=== PATIENT | female | born 1935 | race Caucasian/White ===

== ENCOUNTER 2018-02-01 11:39 | Outpatient (CLI) | payer MEDICARE, OTHER | END 2018-02-01 11:40 | disposition home or self-care (01) | LOC: BICMAMMO 11:39 | PROVIDERS: ATTEND Internal Medicine | DX: Z12.31 Encounter for screening mammogram for malignant neoplasm of breast (principal); N63.20 Unspecified lump in the left breast, unspecified quadrant; N63.10 Unspecified lump in the right breast, unspecified quadrant | CPT/HCPCS: 77063; 77067 ==

== ENCOUNTER 2018-06-02 08:52 | Outpatient (CLI) | payer MEDICARE, OTHER ==
[2018-06-02] MEDS ORDERED: Gadobenate Dimeglumine 529 MG/1 ML (20ML VIAL) ONE (10:38)
--- NOTE | 2018-06-02 11:03 | MRI ---
MRI BRAIN WITH AND WITHOUT CONTRAST: Date: 06/02/18 HISTORY: Dementia. COMPARISON: None. FINDINGS: No hemorrhage on the axial gradient echo sequence. No parenchymal mass, mass effect, or midline shift. Brain volume is age-appropriate. Cortical rashid-wh ite matter differentiation preserved. There is a focal area of malacic change with gliosis involving the right occipital lobe. Remainder of the cerebrum demonstrates preservation of cortical rashid-white matter differentiation. T2 and FLAIR white matter hyperintensities due to chronic small vessel ischemic changes. Central arterial flow-voids are maintained. Absent restricted diffusion. Adequate aeration of the sinuses and mastoid air cells. Minimal opacification of the right mastoid ai r cells is of doubtful significance. No pathologic enhancement of the brain parenchyma. IMPRESSION: Essentially unremarkable pre and postcontrast brain MRI. Brain volume is age-appropriate. POS: AMBROSIO
== END 2018-06-02 08:53 | disposition home or self-care (01) ==
LOC: BICMRI 08:52
PROVIDERS: ATTEND Internal Medicine
DX: F03.90 Unspecified dementia, unspecified severity, without behavioral disturbance, psychotic disturbance, mood disturbance, and anxiety (principal)
CPT/HCPCS: 70553; 82565; A9577

== ENCOUNTER 2022-07-09 10:56 | Inpatient (IN) | payer MEDICARE, OTHER ==
[2022-07-09 11:25] LABS: #Basophils 0.1 thou/uL (0.0-0.2); #Eosinphils 0.2 thou/uL (0.0-0.7); #Lymphocytes 2.3 thou/uL (1.20-3.40); #Neutrophils 10.9 thou/uL (1.40-6.50); %Basophils 0.5 % (0.0-1.0); %Eosinophils 1.5 % (0.0-10.0); %Lymphocytes 16.1 % (21.0-51.0); %Monocytes 6.7 % (0.0-10.0); %Neutrophils 75.2 % (42.0-75.0); Hemoglobin 13.9 g/dL (12.0-16.0); Mean Corpuscular HGB CONC 34.3 g/dL (32.0-36.0); Mean Corpuscular Hemoglobin 33.2 pg (27.0-31.0); Mean Corpuscular Volume 96.7 fl (78.0-98.0); Mean Platelet Volume 7.7 fL (7.4-10.4); Platelet Count 290 10x3/uL (130-400); RBC Distribution Width 12.1 % (11.5-14.5); White Blood Cell (WBC) Count 14.5 10x3/uL (4.8-10.8)
[2022-07-09 11:54] LABS: ALT (SGPT) 15 U/L (8-55); AST (SGOT) 17 U/L (5-34); Albumin 4.2 g/dL (3.4-4.8); Alkaline Phosphatase 130 U/L (40-110); Anion Gap 13 mmol/L (10-20); BUN (Urea Nitrogen) 18 mg/dL (9.8-20.1); Bilirubin, Total 0.7 mg/dL (0.2-1.2); Calc. Creatinine Clearance 0 mL/min (70-130); Carbon Dioxide 25 mmol/L (23-31); Chloride 105 mmol/L (98-107); Estimated GFR 70; Globulin 3.3 g/dL (2.4-3.5); Glucose 104 mg/dL (83-110); Potassium 3.7 mmol/L (3.5-5.1); Protein, Total 7.5 g/dL (5.8-8.1); Sodium 139 mmol/L (136-145)
[2022-07-09 12:15] LABS: PTT 33.7 sec (22.9-36.1); Prothrombin Time 13.9 sec (12.0-14.7)
[2022-07-09] MEDS ORDERED: Iopamidol-370 76% 500 ML MDV (1 ML CHARGE) ONE (13:01)
[2022-07-09] MEDS ORDERED: niCARdipine 25 MG/10 ML SDV ONE ×2 (13:20→13:38)
[2022-07-09] MEDS ORDERED: ADMIXTURE FEE IV SCH (13:30)
[2022-07-09] MEDS ORDERED: HUMAN PROTHROMBIN COMPLX IV SCH (13:30)
[2022-07-09] MEDS ORDERED: Human Prothrombin Complx(PCC) 1,500 UNIT in Admixture Fee 60 EACH IV SCH (13:30)
[2022-07-09 14:31] LABS: Bacteria/HPF 2+ HPF (None Seen); Bilirubin Negative (Negative); Blood, Urine Negative (Negative); Clarity Turbid (Clear); Glucose, Urine (Dipstick) Normal (Negative); Ketone, Urine Negative (Negative); Leukocyte 250 Leu/uL (Negative); Nitrite 2+ (Negative); Protein, Urine (Dipstick) 30 mg/dL (Neg-Trace); RBC/HPF 0-3 HPF (0-3); Squamous Epithelial 0-3 HPF (0-3); Urobilinogen Normal mg/dL (Less than 2); WBC/HPF 21-50 HPF (0-3); pH, Urine 6.5 (5.0-9.0)
[2022-07-09] MEDS ORDERED: cefTRIAXone (ROCEPHIN) 1 GM VIAL ONE (15:15)
[2022-07-09] MEDS ORDERED: Morphine 2 MG/ML VIAL SLOW IVP PRN (15:19)
[2022-07-09] MEDS ORDERED: Ipratropium/Albuterol 3 ML NEB NEB PRN (15:19)
[2022-07-09] MEDS ORDERED: Insulin Regular 300 UNITS/3 ML VIAL SC PRN (15:19)
[2022-07-09] MEDS ORDERED: TETANUS, DIPHTHERIA TOX,ADULT (TDVAX) 0.5 ML VIAL IM ONE (15:19)
[2022-07-09] MEDS ORDERED: Dextrose 50% Abboject 50 ML SYRINGE SLOW IVP PRN (15:19)
[2022-07-09] MEDS ORDERED: Ondansetron PF 4 MG/2 ML Vial IVP PRN (15:19)
[2022-07-09] MEDS ORDERED: Dextrose 5% in Water 1,000 ML IV PRN (15:19)
[2022-07-09] MEDS ORDERED: Acetaminophen 500 MG TAB PO PRN (15:23)
[2022-07-09] MEDS: Sodium Chloride 0.9% 1,000 ML IV SCH (18:21)
[2022-07-09] MEDS: Famotidine/PF 20 mg/2ml Vial SLOW IVP SCH (22:00)
[2022-07-09] MEDS: Senokot S 8.6-50 MG TAB PO SCH (22:00)
[2022-07-09] MEDS: hydrALAZINE 20 MG/ML VIAL SLOW IVP PRN ×2 (22:03→22:53)
[2022-07-09] MEDS: Nitrofurantoin Monohyd/M-Cryst 100 MG CAP PO SCH (23:32)
[2022-07-09] MEDS: Labetalol HCl 100 MG/20 ML VIAL SLOW IVP PRN (23:40)
[2022-07-10 03:50] LABS: #Basophils 0.1 thou/uL (0.0-0.2); #Eosinphils 0.1 thou/uL (0.0-0.7); #Lymphocytes 1.6 thou/uL (1.20-3.40); #Monocytes 1.1 thou/uL (0.11-0.59); #Neutrophils 10.4 thou/uL (1.40-6.50); %Basophils 0.4 % (0.0-1.0); %Eosinophils 1.1 % (0.0-10.0); %Lymphocytes 11.7 % (21.0-51.0); %Neutrophils 78.8 % (42.0-75.0); Hemoglobin 12.1 g/dL (12.0-16.0); Mean Corpuscular HGB CONC 32.7 g/dL (32.0-36.0); Mean Corpuscular Hemoglobin 31.4 pg (27.0-31.0); Mean Corpuscular Volume 95.9 fl (78.0-98.0); Mean Platelet Volume 7.6 fL (7.4-10.4); Platelet Count 290 10x3/uL (130-400); RBC Distribution Width 12.2 % (11.5-14.5); Red Blood Cell (RBC) Count 3.85 mill/uL (4.20-5.40); White Blood Cell (WBC) Count 13.2 10x3/uL (4.8-10.8)
[2022-07-10 04:05] LABS: Anion Gap 11 mmol/L (10-20); BUN (Urea Nitrogen) 14 mg/dL (9.8-20.1); Calc. Creatinine Clearance 56 mL/min (70-130); Calcium 9.3 mg/dL (7.8-10.44); Carbon Dioxide 22 mmol/L (23-31); Chloride 109 mmol/L (98-107); Estimated GFR 79; Glucose 111 mg/dL (83-110); Magnesium 1.5 mg/dL (1.6-2.6); Phosphorus 2.6 mg/dL (2.3-4.7); Potassium 3.1 mmol/L (3.5-5.1); Sodium 139 mmol/L (136-145)
[2022-07-10] MEDS: Labetalol HCl 100 MG/20 ML VIAL SLOW IVP PRN ×2 (04:25→22:40)
[2022-07-10] MEDS ORDERED: Magnesium Sulfate In Water 4 GM in Premix Bag 1 BAG IVPB SCH (05:00)
[2022-07-10] MEDS: Sodium Chloride 0.9% 1,000 ML IV SCH (05:15)
[2022-07-10] MEDS ORDERED: Potassium Phosphate 30 MMOL in Sodium Chloride 0.9% 250 ML 250 ML IVPB SCH (05:30)
[2022-07-10] MEDS: Senokot S 8.6-50 MG TAB PO SCH ×2 (10:16→20:54)
[2022-07-10] MEDS: Polyethylene Glycol 3350 17 GM Packet PO SCH (10:16)
[2022-07-10] MEDS: Famotidine/PF 20 mg/2ml Vial SLOW IVP SCH ×2 (10:16→20:54)
[2022-07-10] MEDS: Nitrofurantoin Monohyd/M-Cryst 100 MG CAP PO SCH ×2 (10:57→20:55)
[2022-07-10] MEDS: hydrALAZINE 20 MG/ML VIAL SLOW IVP PRN ×2 (15:07→20:47)
[2022-07-10] MEDS: Atorvastatin Calcium 20 MG TAB PO SCH (20:53)
[2022-07-10] MEDS ORDERED: Melatonin 3 MG TAB PO SCH (22:45)
[2022-07-11] MEDS: Labetalol HCl 100 MG/20 ML VIAL SLOW IVP PRN ×3 (03:47→15:52)
[2022-07-11 04:01] LABS: #Eosinphils 0.1 thou/uL (0.0-0.7); #Lymphocytes 1.4 thou/uL (1.20-3.40); #Monocytes 1.9 thou/uL (0.11-0.59); #Neutrophils 13.5 thou/uL (1.40-6.50); %Basophils 0.2 % (0.0-1.0); %Eosinophils 0.5 % (0.0-10.0); %Lymphocytes 8.4 % (21.0-51.0); %Monocytes 11.1 % (0.0-10.0); %Neutrophils 79.8 % (42.0-75.0); Mean Corpuscular HGB CONC 34.1 g/dL (32.0-36.0); Mean Corpuscular Hemoglobin 32.6 pg (27.0-31.0); Mean Corpuscular Volume 95.6 fl (78.0-98.0); Mean Platelet Volume 7.6 fL (7.4-10.4); Platelet Count 273 10x3/uL (130-400); RBC Distribution Width 12.4 % (11.5-14.5)
[2022-07-11 04:43] LABS: Anion Gap 12 mmol/L (10-20); BUN (Urea Nitrogen) 17 mg/dL (9.8-20.1); Calc. Creatinine Clearance 46 mL/min (70-130); Calcium 9.1 mg/dL (7.8-10.44); Carbon Dioxide 21 mmol/L (23-31); Chloride 107 mmol/L (98-107); Estimated GFR 67; Glucose 128 mg/dL (83-110); Magnesium 2.2 mg/dL (1.6-2.6); Phosphorus 3.2 mg/dL (2.3-4.7); Potassium 3.7 mmol/L (3.5-5.1); Sodium 136 mmol/L (136-145)
[2022-07-11] MEDS: Levothyroxine Sodium 88 MCG TAB PO SCH (05:53)
[2022-07-11] MEDS: hydrALAZINE 20 MG/ML VIAL SLOW IVP PRN (06:14)
[2022-07-11] MEDS ORDERED: Potassium Chloride 20 MEQ TAB PO SCH (07:45)
[2022-07-11] MEDS: Polyethylene Glycol 3350 17 GM Packet PO SCH (09:59)
[2022-07-11] MEDS: Senokot S 8.6-50 MG TAB PO SCH ×2 (10:01→20:43)
[2022-07-11] MEDS: Montelukast Sodium 10 mg Tablet PO SCH (10:02)
[2022-07-11] MEDS: Nitrofurantoin Monohyd/M-Cryst 100 MG CAP PO SCH ×2 (10:13→20:43)
[2022-07-11] MEDS: Famotidine 20 MG TAB PO SCH ×2 (10:13→20:44)
[2022-07-11] MEDS: Atorvastatin Calcium 20 MG TAB PO SCH (20:44)
[2022-07-11] MEDS: Mometasone 200 MCG/Formoterol 5 MCG 120 PUFF INHALER INH SCH (20:52)
[2022-07-11] MEDS ORDERED: Melatonin 3 MG TAB PO PRN (21:22)
[2022-07-12] MEDS: Levothyroxine Sodium 88 MCG TAB PO SCH (06:01)
[2022-07-12] MEDS: hydrALAZINE 20 MG/ML VIAL SLOW IVP PRN (06:04)
[2022-07-12 06:10] VITALS: BMI 21.2
[2022-07-12] MEDS: Mometasone 200 MCG/Formoterol 5 MCG 120 PUFF INHALER INH SCH ×2 (07:02→18:58)
[2022-07-12] MEDS ORDERED: Torsemide 10 MG TAB PO SCH (09:00)
[2022-07-12 09:19] LABS: #Eosinphils 0.1 thou/uL (0.0-0.7); #Lymphocytes 1.2 thou/uL (1.20-3.40); #Monocytes 1.8 thou/uL (0.11-0.59); #Neutrophils 14.3 thou/uL (1.40-6.50); %Basophils 0.1 % (0.0-1.0); %Eosinophils 0.8 % (0.0-10.0); %Lymphocytes 6.8 % (21.0-51.0); %Monocytes 10.2 % (0.0-10.0); %Neutrophils 82.1 % (42.0-75.0); Hemoglobin 12.1 g/dL (12.0-16.0); Mean Corpuscular HGB CONC 33.4 g/dL (32.0-36.0); Mean Corpuscular Hemoglobin 32.1 pg (27.0-31.0); Mean Corpuscular Volume 96.3 fl (78.0-98.0); Mean Platelet Volume 7.9 fL (7.4-10.4); Platelet Count 285 10x3/uL (130-400); RBC Distribution Width 12.3 % (11.5-14.5); Red Blood Cell (RBC) Count 3.76 mill/uL (4.20-5.40); White Blood Cell (WBC) Count 17.4 10x3/uL (4.8-10.8)
[2022-07-12] MEDS: Famotidine 20 MG TAB PO SCH ×2 (09:36→20:34)
[2022-07-12] MEDS: Polyethylene Glycol 3350 17 GM Packet PO SCH (09:37)
[2022-07-12] MEDS: Senokot S 8.6-50 MG TAB PO SCH ×2 (09:37→20:35)
[2022-07-12] MEDS: Nitrofurantoin Monohyd/M-Cryst 100 MG CAP PO SCH ×2 (09:37→20:34)
[2022-07-12] MEDS: Montelukast Sodium 10 mg Tablet PO SCH (09:37)
[2022-07-12] MEDS ORDERED: Acetaminophen/Codeine 30-300mg Tablet PO PRN (13:28)
[2022-07-12] MEDS ORDERED: Acetaminophen 325 MG TAB PO PRN (13:29)
[2022-07-12] MEDS: Atorvastatin Calcium 20 MG TAB PO SCH (20:34)
[2022-07-13] MEDS: Levothyroxine Sodium 88 MCG TAB PO SCH (06:09)
[2022-07-13 06:31] LABS: Hemoglobin 11.1 g/dL (12.0-16.0); Mean Corpuscular HGB CONC 32.6 g/dL (32.0-36.0); Mean Corpuscular Hemoglobin 31.5 pg (27.0-31.0); Mean Corpuscular Volume 96.5 fl (78.0-98.0); Mean Platelet Volume 7.8 fL (7.4-10.4); Platelet Count 295 10x3/uL (130-400); RBC Distribution Width 12.1 % (11.5-14.5); Red Blood Cell (RBC) Count 3.53 mill/uL (4.20-5.40); White Blood Cell (WBC) Count 13.6 10x3/uL (4.8-10.8)
[2022-07-13] MEDS: Mometasone 200 MCG/Formoterol 5 MCG 120 PUFF INHALER INH SCH (07:06)
[2022-07-13 08:28] LABS: Band 3 % (5-11); Lymphocytes 12 % (21-51); MDiff Complete? YES; Monocytes 17 % (0-10); Neutrophil 68 % (42-75); Platelet Morphology Comment Appears Adequate; RBC Morphology Normal
[2022-07-13] MEDS: Polyethylene Glycol 3350 17 GM Packet PO SCH (08:28)
[2022-07-13] MEDS: Famotidine 20 MG TAB PO SCH (08:28)
[2022-07-13] MEDS: Montelukast Sodium 10 mg Tablet PO SCH (08:28)
[2022-07-13] MEDS: Senokot S 8.6-50 MG TAB PO SCH (08:30)
[2022-07-13 08:38] VITALS: TEMP 98.2
[2022-07-13 08:50] LABS: Anion Gap 13 mmol/L (10-20); BUN (Urea Nitrogen) 19 mg/dL (9.8-20.1); Calc. Creatinine Clearance 49 mL/min (70-130); Carbon Dioxide 20 mmol/L (23-31); Chloride 104 mmol/L (98-107); Estimated GFR 69; Glucose 91 mg/dL (83-110); Potassium 3.7 mmol/L (3.5-5.1); Sodium 133 mmol/L (136-145)
[2022-07-13 13:05] VITALS: BP 175/62
[2022-07-13] MEDS ORDERED: Lisinopril 10 MG TAB PO SCH (14:00)
[2022-07-14] MEDS ORDERED: Lisinopril 10 MG TAB PO SCH (09:00)
== END 2022-07-13 14:59 | DRG 83 ==
LOC: EDBD 10:56 → ERS 10:56 → ERHOLD 15:01 → CCU 20:18 → SURG B 07-11 19:14
PROVIDERS: ADMIT Specialist; ATTEND Student in an Organized Health Care Education/Training Program
PROC: 30283B1 Transfusion of Nonautologous 4-Factor Prothrombin Complex Concentrate into Vein, Percutaneous Approach (ICD-10-PCS; principal; 2022-07-09)
DX: S06.5XAA Traumatic subdural hemorrhage with loss of consciousness status unknown, initial encounter (principal); N17.9 Acute kidney failure, unspecified; N39.0 Urinary tract infection, site not specified; B96.20 Unspecified Escherichia coli [E. coli] as the cause of diseases classified elsewhere; I48.91 Unspecified atrial fibrillation; J45.909 Unspecified asthma, uncomplicated; E03.9 Hypothyroidism, unspecified; G30.9 Alzheimer's disease, unspecified; F02.80 Dementia in other diseases classified elsewhere, unspecified severity, without behavioral disturbance, psychotic disturbance, mood disturbance, and anxiety; Z60.2 Problems related to living alone; R40.2412 Glasgow coma scale score 13-15, at arrival to emergency department; W18.30XA Fall on same level, unspecified, initial encounter; Y92.009 Unspecified place in unspecified non-institutional (private) residence as the place of occurrence of the external cause; Z98.890 Other specified postprocedural states; Z79.01 Long term (current) use of anticoagulants; Z88.1 Allergy status to other antibiotic agents; Z88.0 Allergy status to penicillin; Z88.8 Allergy status to other drugs, medicaments and biological substances
CPT/HCPCS: 36415; 36416; 70450; 71260; 72125; 74177; 80048; 80053; 81003; 81015; 83735; 83880; 84100; 84484; 85025; 85610; 85730; 87040; 87077; 87086; 87186; 93005; 93970; 96365; 96366; 96375; G0390; J0360; J0696; J1815; J3475; J7050; J7168; Q9967; S0028

== ENCOUNTER 2022-10-28 08:13 | Outpatient (CLI) | payer MEDICARE, OTHER | END 2022-10-28 08:14 | disposition home or self-care (01) | LOC: SCSCT 08:13 | PROVIDERS: ATTEND Nurse Practitioner Family | DX: I62.00 Nontraumatic subdural hemorrhage, unspecified (principal) | CPT/HCPCS: 70450 ==

== ENCOUNTER 2022-11-27 07:35 | Inpatient (IN) | payer MEDICARE, OTHER ==
[2022-11-27] MEDS ORDERED: Lidocaine 1% w/Epinephrine 1:100K 20 ML VIAL ONE (08:10)
[2022-11-27 08:55] LABS: #Monocytes 1.7 thou/uL (0.11-0.59); #Neutrophils 11.7 thou/uL (1.40-6.50); %Basophils 0.3 % (0.0-1.0); %Eosinophils 0.2 % (0.0-10.0); %Lymphocytes 7.3 % (21.0-51.0); %Monocytes 11.5 % (0.0-10.0); %Neutrophils 79.8 % (42.0-75.0); Hematocrit 35.4 % (36.0-47.0); Hemoglobin 11.8 g/dL (12.0-16.0); Mean Corpuscular HGB CONC 33.3 g/dL (32.0-36.0); Mean Corpuscular Hemoglobin 30.6 pg (27.0-31.0); Mean Corpuscular Volume 91.7 fl (78.0-98.0); Mean Platelet Volume 10.3 fL (7.4-10.4); Platelet Count 250 10x3/uL (130-400); RBC Distribution Width 13.4 % (11.5-14.5); Red Blood Cell (RBC) Count 3.86 mill/uL (4.20-5.40); White Blood Cell (WBC) Count 14.7 10x3/uL (4.8-10.8)
[2022-11-27] MEDS ORDERED: Midazolam HCl 2 mg/2 ml Vial ONE (09:09)
[2022-11-27 09:23] LABS: ALT (SGPT) 11 U/L (8-55); AST (SGOT) 14 U/L (5-34); Albumin 3.4 g/dL (3.4-4.8); Alkaline Phosphatase 86 U/L (40-110); Anion Gap 14 mmol/L (10-20); BUN (Urea Nitrogen) 17 mg/dL (9.8-20.1); Bilirubin, Total 1.4 mg/dL (0.2-1.2); Calc. Creatinine Clearance 0 mL/min (70-130); Carbon Dioxide 23 mmol/L (23-31); Chloride 103 mmol/L (98-107); Estimated GFR 71; Globulin 2.3 g/dL (2.4-3.5); Glucose 125 mg/dL (83-110); Potassium 3.6 mmol/L (3.5-5.1); Protein, Total 5.7 g/dL (5.8-8.1); Sodium 136 mmol/L (136-145)
[2022-11-27] MEDS ORDERED: Bisacodyl 5 MG TAB PO PRN (10:29)
[2022-11-27] MEDS ORDERED: Bisacodyl 10 MG SUPP PR PRN (10:29)
[2022-11-27] MEDS ORDERED: Senokot S 8.6-50 MG TAB PO PRN (10:29)
[2022-11-27] MEDS ORDERED: Dextrose 5% in Water 1,000 ML IV PRN (10:31)
[2022-11-27] MEDS ORDERED: Dextrose 50% Abboject 50 ML SYRINGE SLOW IVP PRN (10:31)
[2022-11-27] MEDS ORDERED: HumaLOG 300 UNITS/3 ML VIAL SC PRN ×2 (10:31)
[2022-11-27] MEDS ORDERED: Glucagon 1 MG/ML KIT IM PRN (10:31)
[2022-11-27] MEDS ORDERED: Cefepime 1 GM VIAL ONE (10:48)
[2022-11-27] MEDS ORDERED: Vancomycin 1 GM/200 ML (FROZEN) BAG ONE (13:21)
[2022-11-27] MEDS: Sodium Chloride 0.9% 1,000 ML IV SCH (14:08)
[2022-11-27 15:40] VITALS: BMI 18.6
[2022-11-27] MEDS: Morphine 4 MG/ML VIAL SLOW IVP PRN (20:32)
[2022-11-27] MEDS: Atorvastatin Calcium 20 MG TAB PO SCH (20:34)
[2022-11-27] MEDS ORDERED: Vancomycin 1 GM in Premix Bag 1 BAG IVPB SCH (21:00)
[2022-11-28] MEDS: Acetaminophen 325 MG TAB PO PRN ×2 (06:11→20:19)
[2022-11-28] MEDS: Levothyroxine Sodium 88 MCG TAB PO SCH (06:11)
[2022-11-28 06:46] LABS: #Basophils 0.1 thou/uL (0.0-0.2); #Eosinphils 0.1 thou/uL (0.0-0.7); #Monocytes 2.1 thou/uL (0.11-0.59); #Neutrophils 12.6 thou/uL (1.40-6.50); %Basophils 0.4 % (0.0-1.0); %Eosinophils 0.3 % (0.0-10.0); %Lymphocytes 10.5 % (21.0-51.0); %Monocytes 12.9 % (0.0-10.0); %Neutrophils 75.3 % (42.0-75.0); Hematocrit 40.3 % (36.0-47.0); Mean Corpuscular HGB CONC 32.3 g/dL (32.0-36.0); Mean Corpuscular Hemoglobin 30.4 pg (27.0-31.0); Mean Corpuscular Volume 94.4 fl (78.0-98.0); Mean Platelet Volume 10.4 fL (7.4-10.4); Platelet Count 271 10x3/uL (130-400); RBC Distribution Width 13.2 % (11.5-14.5); Red Blood Cell (RBC) Count 4.27 mill/uL (4.20-5.40); White Blood Cell (WBC) Count 16.7 10x3/uL (4.8-10.8)
[2022-11-28 07:05] LABS: ALT (SGPT) 10 U/L (8-55); AST (SGOT) 12 U/L (5-34); Albumin 3.6 g/dL (3.4-4.8); Alkaline Phosphatase 89 U/L (40-110); Anion Gap 13 mmol/L (10-20); BUN (Urea Nitrogen) 16 mg/dL (9.8-20.1); Bilirubin, Direct 0.7 mg/dL (0.1-0.3); Bilirubin, Total 1.3 mg/dL (0.2-1.2); CRP (Inflammatory) 17.51 mg/dL (= or < 0.5); Calc. Creatinine Clearance 51 mL/min (70-130); Calcium 9.7 mg/dL (7.8-10.44); Carbon Dioxide 21 mmol/L (23-31); Cardiac Risk 2.9 (Less than 4.5); Chloride 105 mmol/L (98-107); Cholesterol 124 mg/dl (< 200 Desired); Estimated GFR 79; Glucose 86 mg/dL (83-110); HDL Cholesterol 43 mg/dL (>60 Neg Risk); LDL Cholesterol, Calculated 67 mg/dL; Magnesium 1.9 mg/dL (1.6-2.6); Potassium 3.6 mmol/L (3.5-5.1); Protein, Total 6.8 g/dL (5.8-8.1); Sodium 135 mmol/L (136-145); Triglycerides 68 mg/dL (Less than 150)
[2022-11-28 08:40] LABS: Hemoglobin A1c 4.9 % (4.0-6.0)
[2022-11-28] MEDS: Montelukast Sodium 10 mg Tablet PO SCH (09:55)
[2022-11-28] MEDS: Sodium Chloride 0.9% 1,000 ML IV SCH (09:56)
[2022-11-28] MEDS: Torsemide 10 MG TAB PO SCH (11:08)
[2022-11-28] MEDS ORDERED: Vancomycin 1 GM in Premix Bag 1 BAG IVPB SCH (12:00)
[2022-11-28] MEDS: cefTRIAXone\\ROCEPHIN 2 GM in Sodium Chloride 0.9% 100 ML IVPB SCH (14:51)
[2022-11-28] MEDS: Atorvastatin Calcium 20 MG TAB PO SCH (20:19)
[2022-11-29] MEDS: Sodium Chloride 0.9% 1,000 ML IV SCH ×2 (06:22→23:00)
[2022-11-29] MEDS: Levothyroxine Sodium 88 MCG TAB PO SCH (06:22)
[2022-11-29] MEDS: Acetaminophen 325 MG TAB PO PRN ×2 (06:23→19:47)
[2022-11-29 06:28] LABS: #Eosinphils 0.1 thou/uL (0.0-0.7); #Monocytes 1.8 thou/uL (0.11-0.59); %Basophils 0.2 % (0.0-1.0); %Eosinophils 0.8 % (0.0-10.0); %Lymphocytes 8.6 % (21.0-51.0); %Monocytes 13.9 % (0.0-10.0); %Neutrophils 75.8 % (42.0-75.0); Hematocrit 32.9 % (36.0-47.0); Mean Corpuscular HGB CONC 33.4 g/dL (32.0-36.0); Mean Corpuscular Hemoglobin 30.8 pg (27.0-31.0); Mean Corpuscular Volume 92.2 fl (78.0-98.0); Platelet Count 279 10x3/uL (130-400); RBC Distribution Width 13.2 % (11.5-14.5); Red Blood Cell (RBC) Count 3.57 mill/uL (4.20-5.40); White Blood Cell (WBC) Count 13.2 10x3/uL (4.8-10.8)
[2022-11-29 06:55] LABS: CRP (Inflammatory) 17.34 mg/dL (= or < 0.5); Uric Acid 4.2 mg/dL (2.6-6.0)
[2022-11-29 07:02] LABS: Anion Gap 8 mmol/L (10-20); BUN (Urea Nitrogen) 16 mg/dL (9.8-20.1); Calc. Creatinine Clearance 47 mL/min (70-130); Calcium 8.6 mg/dL (7.8-10.44); Carbon Dioxide 25 mmol/L (23-31); Chloride 104 mmol/L (98-107); Estimated GFR 72; Glucose 116 mg/dL (83-110); Magnesium 2.1 mg/dL (1.6-2.6); Potassium 3.1 mmol/L (3.5-5.1); Sodium 134 mmol/L (136-145)
[2022-11-29] MEDS: Montelukast Sodium 10 mg Tablet PO SCH (09:34)
[2022-11-29] MEDS ORDERED: Amlodipine 5 MG TAB PO SCH (10:00)
[2022-11-29] MEDS ORDERED: Potassium Chloride 20 MEQ TAB PO SCH (10:00)
[2022-11-29] MEDS ORDERED: Vancomycin 1 GM in Premix Bag 1 BAG IVPB SCH (10:45)
[2022-11-29 11:30] LABS: Vancomycin, Trough 8.7 ug/mL
[2022-11-29] MEDS: Torsemide 10 MG TAB PO SCH (12:38)
[2022-11-29] MEDS: VANCOMYCIN 1.25 GM/250 ML BAG 1.25 GM in Premix Bag 1 BAG IVPB SCH (14:44)
[2022-11-29] MEDS: cefTRIAXone\\ROCEPHIN 2 GM in Sodium Chloride 0.9% 100 ML IVPB SCH (16:35)
[2022-11-29] MEDS: Atorvastatin Calcium 20 MG TAB PO SCH (19:47)
[2022-11-30] MEDS: Acetaminophen 325 MG TAB PO PRN ×2 (04:58→20:39)
[2022-11-30] MEDS: Levothyroxine Sodium 88 MCG TAB PO SCH (05:00)
[2022-11-30] MEDS: Sodium Chloride 0.9% 1,000 ML IV SCH (05:05)
[2022-11-30 06:49] LABS: #Eosinphils 0.3 thou/uL (0.0-0.7); #Monocytes 1.5 thou/uL (0.11-0.59); #Neutrophils 7.8 thou/uL (1.40-6.50); %Basophils 0.3 % (0.0-1.0); %Eosinophils 2.8 % (0.0-10.0); %Lymphocytes 12.4 % (21.0-51.0); %Monocytes 13.2 % (0.0-10.0); %Neutrophils 70.7 % (42.0-75.0); Hematocrit 32.7 % (36.0-47.0); Hemoglobin 10.8 g/dL (12.0-16.0); Mean Corpuscular Hemoglobin 30.8 pg (27.0-31.0); Mean Corpuscular Volume 93.2 fl (78.0-98.0); Platelet Count 315 10x3/uL (130-400); RBC Distribution Width 13.1 % (11.5-14.5); Red Blood Cell (RBC) Count 3.51 mill/uL (4.20-5.40); White Blood Cell (WBC) Count 11.1 10x3/uL (4.8-10.8)
[2022-11-30 07:11] LABS: Anion Gap 10 mmol/L (10-20); BUN (Urea Nitrogen) 19 mg/dL (9.8-20.1); Calc. Creatinine Clearance 48 mL/min (70-130); Calcium 8.4 mg/dL (7.8-10.44); Carbon Dioxide 27 mmol/L (23-31); Chloride 105 mmol/L (98-107); Estimated GFR 74; Glucose 107 mg/dL (83-110); Magnesium 1.5 mg/dL (1.6-2.6); Potassium 3.1 mmol/L (3.5-5.1); Sodium 139 mmol/L (136-145)
[2022-11-30] MEDS: Amlodipine 5 MG TAB PO SCH (09:43)
[2022-11-30] MEDS: Montelukast Sodium 10 mg Tablet PO SCH (09:44)
[2022-11-30] MEDS ORDERED: Potassium Chloride 20 MEQ TAB PO SCH (10:30)
[2022-11-30] MEDS ORDERED: Magnesium Sulfate In Water 4 GM in Premix Bag 1 BAG IVPB SCH (10:30)
[2022-11-30] MEDS: Torsemide 10 MG TAB PO SCH (11:04)
[2022-11-30] MEDS: VANCOMYCIN 1.25 GM/250 ML BAG 1.25 GM in Premix Bag 1 BAG IVPB SCH (12:38)
[2022-11-30] MEDS: cefTRIAXone\\ROCEPHIN 2 GM in Sodium Chloride 0.9% 100 ML IVPB SCH (16:00)
[2022-11-30] MEDS: Atorvastatin Calcium 20 MG TAB PO SCH (20:33)
[2022-12-01] MEDS: Morphine 4 MG/ML VIAL SLOW IVP PRN (00:16)
[2022-12-01] MEDS: Levothyroxine Sodium 88 MCG TAB PO SCH (05:02)
[2022-12-01 07:58] LABS: #Basophils 0.1 thou/uL (0.0-0.2); #Eosinphils 0.6 thou/uL (0.0-0.7); #Monocytes 1.2 thou/uL (0.11-0.59); #Neutrophils 6.3 thou/uL (1.40-6.50); %Basophils 0.5 % (0.0-1.0); %Eosinophils 6.2 % (0.0-10.0); %Monocytes 12.5 % (0.0-10.0); %Neutrophils 64.3 % (42.0-75.0); Hematocrit 35.9 % (36.0-47.0); Hemoglobin 11.6 g/dL (12.0-16.0); Mean Corpuscular HGB CONC 32.3 g/dL (32.0-36.0); Mean Corpuscular Hemoglobin 30.3 pg (27.0-31.0); Mean Corpuscular Volume 93.7 fl (78.0-98.0); Mean Platelet Volume 9.9 fL (7.4-10.4); Platelet Count 349 10x3/uL (130-400); Red Blood Cell (RBC) Count 3.83 mill/uL (4.20-5.40); White Blood Cell (WBC) Count 9.7 10x3/uL (4.8-10.8)
[2022-12-01 08:24] LABS: Anion Gap 11 mmol/L (10-20); BUN (Urea Nitrogen) 12 mg/dL (9.8-20.1); Calc. Creatinine Clearance 50 mL/min (70-130); Calcium 8.6 mg/dL (7.8-10.44); Carbon Dioxide 23 mmol/L (23-31); Chloride 104 mmol/L (98-107); Estimated GFR 78; Glucose 85 mg/dL (83-110); Potassium 3.4 mmol/L (3.5-5.1); Sodium 135 mmol/L (136-145)
[2022-12-01] MEDS: Montelukast Sodium 10 mg Tablet PO SCH (08:45)
[2022-12-01] MEDS: Amlodipine 5 MG TAB PO SCH (08:45)
[2022-12-01] MEDS ORDERED: Potassium Chloride 20 MEQ TAB PO SCH ×2 (10:00→14:30)
[2022-12-01] MEDS ORDERED: Amlodipine 5 MG TAB PO SCH (10:15)
[2022-12-01] MEDS ORDERED: Potassium Bicarbonate/Cit Ac 20 MEQ TAB PO SCH ×2 (11:00→14:30)
[2022-12-01] MEDS: Torsemide 10 MG TAB PO SCH (11:29)
[2022-12-01] MEDS: Sodium Chloride 0.9% 1,000 ML IV SCH (11:31)
[2022-12-01] MEDS: cefTRIAXone\\ROCEPHIN 2 GM in Sodium Chloride 0.9% 100 ML IVPB SCH (13:51)
[2022-12-01] MEDS: VANCOMYCIN 1.25 GM/250 ML BAG 1.25 GM in Premix Bag 1 BAG IVPB SCH ×2 (14:40→15:54)
[2022-12-01] MEDS: Mometasone 100 MCG/Formoterol 5 MCG 120 PUFF INHALER INH SCH (19:51)
[2022-12-01] MEDS: Atorvastatin Calcium 20 MG TAB PO SCH (20:02)
[2022-12-02] MEDS: Sodium Chloride 0.9% 1,000 ML IV SCH ×2 (03:26→14:50)
[2022-12-02] MEDS: Levothyroxine Sodium 88 MCG TAB PO SCH (05:12)
[2022-12-02] MEDS: Mometasone 100 MCG/Formoterol 5 MCG 120 PUFF INHALER INH SCH ×2 (07:05→18:25)
[2022-12-02 08:17] LABS: #Basophils 0.1 thou/uL (0.0-0.2); #Eosinphils 0.4 thou/uL (0.0-0.7); #Monocytes 0.8 thou/uL (0.11-0.59); #Neutrophils 6.4 thou/uL (1.40-6.50); %Basophils 0.7 % (0.0-1.0); %Eosinophils 4.4 % (0.0-10.0); %Lymphocytes 12.8 % (21.0-51.0); %Monocytes 9.2 % (0.0-10.0); %Neutrophils 72.4 % (42.0-75.0); Hematocrit 38.2 % (36.0-47.0); Mean Corpuscular HGB CONC 31.4 g/dL (32.0-36.0); Mean Corpuscular Hemoglobin 30.2 pg (27.0-31.0); Mean Platelet Volume 9.3 fL (7.4-10.4); Platelet Count 403 10x3/uL (130-400); RBC Distribution Width 12.9 % (11.5-14.5); Red Blood Cell (RBC) Count 3.98 mill/uL (4.20-5.40); White Blood Cell (WBC) Count 8.8 10x3/uL (4.8-10.8)
[2022-12-02] MEDS: Amlodipine 10 MG TAB PO SCH (08:58)
[2022-12-02] MEDS: Montelukast Sodium 10 mg Tablet PO SCH (08:58)
[2022-12-02] MEDS ORDERED: SALMETEROL INH SCH (09:00)
[2022-12-02] MEDS ORDERED: FLUTICASONE PROPION INH SCH (09:00)
[2022-12-02] MEDS ORDERED: [UNRECOGNIZED DRUG - OTHER] INH SCH (09:00)
[2022-12-02 09:01] LABS: Anion Gap 16 mmol/L (10-20); BUN (Urea Nitrogen) 14 mg/dL (9.8-20.1); Calc. Creatinine Clearance 53 mL/min (70-130); Calcium 9.3 mg/dL (7.8-10.44); Carbon Dioxide 19 mmol/L (23-31); Chloride 105 mmol/L (98-107); Estimated GFR 82; Glucose 98 mg/dL (83-110); Magnesium 1.7 mg/dL (1.6-2.6); Potassium 3.5 mmol/L (3.5-5.1); Sodium 136 mmol/L (136-145)
[2022-12-02] MEDS: Torsemide 10 MG TAB PO SCH (12:55)
[2022-12-02] MEDS: cefTRIAXone\\ROCEPHIN 2 GM in Sodium Chloride 0.9% 100 ML IVPB SCH (14:52)
[2022-12-02] MEDS: VANCOMYCIN 1.25 GM/250 ML BAG 1.25 GM in Premix Bag 1 BAG IVPB SCH (17:59)
[2022-12-02] MEDS: Acetaminophen 325 MG TAB PO PRN (20:31)
[2022-12-02] MEDS: Apixaban 2.5 MG TAB PO SCH (20:31)
[2022-12-02] MEDS: Atorvastatin Calcium 20 MG TAB PO SCH (20:31)
[2022-12-03] MEDS: Levothyroxine Sodium 88 MCG TAB PO SCH (05:22)
[2022-12-03 06:55] LABS: #Eosinphils 0.5 thou/uL (0.0-0.7); #Monocytes 1.1 thou/uL (0.11-0.59); #Neutrophils 5.4 thou/uL (1.40-6.50); %Basophils 0.5 % (0.0-1.0); %Eosinophils 6.4 % (0.0-10.0); %Lymphocytes 16.8 % (21.0-51.0); %Monocytes 12.4 % (0.0-10.0); %Neutrophils 63.1 % (42.0-75.0); Hematocrit 37.7 % (36.0-47.0); Hemoglobin 12.2 g/dL (12.0-16.0); Mean Corpuscular HGB CONC 32.4 g/dL (32.0-36.0); Mean Corpuscular Hemoglobin 30.2 pg (27.0-31.0); Mean Corpuscular Volume 93.3 fl (78.0-98.0); Mean Platelet Volume 9.2 fL (7.4-10.4); Platelet Count 481 10x3/uL (130-400); RBC Distribution Width 12.8 % (11.5-14.5); Red Blood Cell (RBC) Count 4.04 mill/uL (4.20-5.40); White Blood Cell (WBC) Count 8.5 10x3/uL (4.8-10.8)
[2022-12-03 07:22] LABS: Anion Gap 15 mmol/L (10-20); BUN (Urea Nitrogen) 13 mg/dL (9.8-20.1); Calc. Creatinine Clearance 52 mL/min (70-130); Calcium 9.5 mg/dL (7.8-10.44); Carbon Dioxide 21 mmol/L (23-31); Chloride 107 mmol/L (98-107); Estimated GFR 80; Glucose 98 mg/dL (83-110); Magnesium 1.8 mg/dL (1.6-2.6); Potassium 3.5 mmol/L (3.5-5.1); Sodium 139 mmol/L (136-145)
[2022-12-03] MEDS: Montelukast Sodium 10 mg Tablet PO SCH (08:56)
[2022-12-03] MEDS: Amlodipine 10 MG TAB PO SCH (08:56)
[2022-12-03] MEDS: Apixaban 2.5 MG TAB PO SCH (08:56)
[2022-12-03] MEDS ORDERED: Aspirin 81 mg Enteric Coated Tablet PO SCH (09:00)
[2022-12-03] MEDS: Mometasone 100 MCG/Formoterol 5 MCG 120 PUFF INHALER INH SCH (09:02)
[2022-12-03] MEDS: Torsemide 10 MG TAB PO SCH (11:35)
[2022-12-03 13:00] VITALS: BP 161/66; TEMP 98
== END 2022-12-03 13:36 | disposition home health service (06) | DRG 603 ==
LOC: ERS 07:35 → SUATTDRO 07:35 → ERHOLD 10:29 → T4-A 15:04
PROVIDERS: ADMIT Family Medicine; ATTEND Internal Medicine
DX: L03.114 Cellulitis of left upper limb (principal); I48.20 Chronic atrial fibrillation, unspecified; Z68.1 Body mass index [BMI] 19.9 or less, adult; I10 Essential (primary) hypertension; E03.9 Hypothyroidism, unspecified; R63.6 Underweight; E78.5 Hyperlipidemia, unspecified; J45.909 Unspecified asthma, uncomplicated; Z88.0 Allergy status to penicillin; Z88.8 Allergy status to other drugs, medicaments and biological substances; Z79.01 Long term (current) use of anticoagulants; Z79.899 Other long term (current) drug therapy; Z98.890 Other specified postprocedural states; Z86.73 Personal history of transient ischemic attack (TIA), and cerebral infarction without residual deficits; Z79.82 Long term (current) use of aspirin
CPT/HCPCS: 20605; 36415; 36416; 80048; 80053; 80061; 80076; 80202; 83036; 83735; 84443; 84550; 85025; 85652; 86140; 86850; 86900; 86901; 87040; 87070; 87205; 94664; 96365; 96367; 96375; J0692; J0696; J2250; J2270; J3370; J3370-JW; J3475; J3490; J7050